=== PATIENT | male | born 1980 | race Two or more races ===

== ENCOUNTER 2020-07-29 07:55 | Emergency (ER) | payer MEDICAID ==
[~2020-07-29] VITALS: Ht 172.7 cm; Wt 108.9 kg
[2020-07-29 08:01] VITALS: BP 163/97
== END 2020-07-29 09:16 ==
LOC: ED 08:40
DX: J06.9 Acute upper respiratory infection, unspecified (principal); Z20.828 Contact with and (suspected) exposure to other viral communicable diseases; R11.10 Vomiting, unspecified
CPT/HCPCS: 71045; 87635; 93005; 99285

== ENCOUNTER 2020-08-08 16:06 | Emergency (ER) | payer MEDICAID ==
[~2020-08-08] VITALS: Ht 175.3 cm; Wt 110.0 kg
[2020-08-08 16:13] VITALS: BP 142/84
== END 2020-08-08 18:24 | disposition home or self-care (01) ==
LOC: ED 17:28
DX: H66.002 Acute suppurative otitis media without spontaneous rupture of ear drum, left ear (principal); E11.9 Type 2 diabetes mellitus without complications
CPT/HCPCS: 99283

== ENCOUNTER 2021-02-01 17:22 | Emergency (ER) | payer MEDICAID ==
[~2021-02-01] VITALS: Ht 175.3 cm; Wt 107.2 kg
--- NOTE | 2021-02-01 18:17 | NUR ---
SAME TRIAGE NOTE. PT STATES HE HASN'T BEEN TAKING HIS MEDS FOR DM BECAUSE, "I DIDN'T THINK I NEEDED THEM". STATES NO PCP AT THIS TIME. VSS, NO OTHER COMPLAINTS AT THIS TIME.
--- NOTE | 2021-02-01 18:34 | NUR ---
ERP AT BS.
[2021-02-01 19:04] LABS: BASOPHILS % (AUTO) 1 % (0-1); EOSINOPHILS % (AUTO) 2 % (1-7); LYMPHOCYTES % (AUTO) 30 % (22-44); MEAN CORPUSCULAR HEMOGLOBIN 29.7 pg (27.5-34.5); MEAN CORPUSCULAR HGB CONC 34.8 g/dL (33.2-36.2); MEAN PLATELET VOLUME 9.4 fL (7.4-10.4); MONOCYTES % (AUTO) 5 % (2-9); NEUTROPHILS % (AUTO) 62 % (42-75); PLATELET COUNT 272 x10^3/uL (130-400); RED BLOOD COUNT 4.47 x10^6/uL (4.38-5.82)
[2021-02-01 19:05] LABS: ANION GAP 7 mmol/L (5-15); CALCIUM 8.4 mg/dL (8.5-10.1); CHLORIDE 102 mmol/L (98-107); CREATININE 0.77 mg/dL (0.7-1.3)
[2021-02-01] MEDS ORDERED: INSULIN SINGLE DOSE, ER ONE ×2 (20:16→20:29)
[2021-02-01 20:22] VITALS: BP 152/74
[2021-02-01] MEDS ORDERED: INSULIN REGULAR 100 UNITS/ML, 3ML VIAL SQ-INSULIN ONE (20:30)
--- NOTE | 2021-02-01 20:33 | NUR ---
D/C INSTRUCTIONS, MEDS & F/U APPT RV'WD WITH PT, HE VERBALIZES UNDERSTANDING. RX GIVEN X2. EDUCATED PT ON IMPORTANCE OF F/U WITH PCP. PT AMBULATED OUT OF ED WITHOUT DIFFICULTY.
== END 2021-02-01 20:34 | disposition home or self-care (01) ==
LOC: ED 17:52
DX: E11.65 Type 2 diabetes mellitus with hyperglycemia (principal); Z91.19 Patient's noncompliance with other medical treatment and regimen
CPT/HCPCS: 36415; 80048; 82040; 82962; 85025; 99283; J1815